=== PATIENT | female | born 1955 | race Caucasian/White ===

== ENCOUNTER → 2016-09-13 | Outpatient (CLI) | payer MEDICARE, OTHER ==
[2016-09-13 09:01] LABS: HEMATOCRIT 31.9 % (36.0-47.0); HGB HCT DIFFERENCE -1.9; MEAN CORPUSCULAR HEMOGLOBIN 23.9 pg (27.0-33.4); MEAN CORPUSCULAR HGB CONC 31.3 g/dL (32.0-36.0); MEAN CORPUSCULAR VOLUME 76 fl (80-97); RED BLOOD COUNT 4.18 10^6/uL (3.72-5.28); RED CELL DISTRIBUTION WIDTH 16.5 % (11.5-14.0); WHITE BLOOD COUNT 12.9 10^3/uL (4.0-10.5)
[2016-09-13 09:22] LABS: ALANINE AMINOTRANSFERASE 24 U/L (9-52); ALBUMIN 3.8 g/dL (3.5-5.0); ALKALINE PHOSPHATASE 45 U/L (38-126); ASPARTATE AMINO TRANSFERASE 19 U/L (14-36); BILIRUBIN,TOTAL 0.5 mg/dL (0.2-1.3); CHOLESTEROL 217.28 mg/dL (0-200); Direct HDL 104 mg/dL (>40); TOTAL PROTEIN 6.7 g/dL (6.3-8.2); TRIGLYCERIDES 57 mg/dL (<150)
[2016-09-13 09:24] LABS: ANION GAP 9 (5-19); BLOOD UREA NITROGEN 15 mg/dL (7-20); CALCIUM 10.3 mg/dL (8.4-10.2); CARBON DIOXIDE 29 mmol/L (22-30); CHLORIDE 103 mmol/L (98-107); CREATININE RESULT 0.72 mg/dL (0.52-1.25); GLUCOSE 96 mg/dL (75-110); POTASSIUM 4.7 mmol/L (3.6-5.0); SODIUM 140.6 mmol/L (137-145)
[2016-09-13 09:33] LABS: DIRECT LDL 100 mg/dL (<100)
[2016-09-13 10:02] LABS: ERYTHROCYTE SEDIMENTATION RATE 34 mm/hr (0-30)
== END ==
LOC: OD 08:14
PROVIDERS: ATTEND Internal Medicine Cardiovascular Disease
DX: R07.9 Chest pain, unspecified (principal); E03.9 Hypothyroidism, unspecified; Z79.899 Other long term (current) drug therapy
CPT/HCPCS: 36415; 80048; 80061; 80076; 84443; 85027; 85652

== ENCOUNTER → 2016-11-13 | Outpatient (CLI) | payer MEDICARE, OTHER ==
[2016-11-13 16:24] LABS: THYROID STIMULATING HORMONE 0.23 uIU/mL (0.47-4.68)
== END ==
LOC: OD 14:38
PROVIDERS: ATTEND Internal Medicine Endocrinology, Diabetes & Metabolism
DX: E03.9 Hypothyroidism, unspecified (principal); E16.2 Hypoglycemia, unspecified
CPT/HCPCS: 36415; 83036; 84439; 84443; 84480

== ENCOUNTER → 2019-04-29 | Outpatient (CLI) | payer MEDICARE, OTHER ==
[2019-04-29 13:22] LABS: ALBUMIN 3.7 g/dL (3.5-5.0); ALKALINE PHOSPHATASE 69 U/L (38-126); ASPARTATE AMINO TRANSFERASE 24 U/L (14-36); BILIRUBIN,DIRECT 0.1 mg/dL (0.0-0.4); BILIRUBIN,TOTAL 0.3 mg/dL (0.2-1.3); CHOLESTEROL 198.07 mg/dL (0-200); TOTAL PROTEIN 6.6 g/dL (6.3-8.2); TRIGLYCERIDES 136 mg/dL (<150)
[2019-04-29 13:33] LABS: DIRECT LDL 79 mg/dL (<100)
== END ==
LOC: LAB 10:00
PROVIDERS: ATTEND Internal Medicine Cardiovascular Disease
DX: E78.00 Pure hypercholesterolemia, unspecified (principal); M79.10 Myalgia, unspecified site; Z79.899 Other long term (current) drug therapy
CPT/HCPCS: 36415; 80061; 80076; 82550

== ENCOUNTER → 2019-08-05 | Outpatient (CLI) | payer MEDICARE, OTHER ==
[2019-08-05 10:10] LABS: ABSOLUTE BASOPHILS # (AUTO) 0.1 10^3/uL (0.0-0.2); ABSOLUTE EOSINOPHILS # (AUTO) 0.2 10^3/uL (0.0-0.6); ABSOLUTE LYMPHOCYTES (AUTO) 1.5 10^3/uL (0.5-4.7); ABSOLUTE MONOCYTES (AUTO) 0.5 10^3/uL (0.1-1.4); ABSOLUTE NEUT (AUTO) 2.8 10^3/uL (1.7-8.2); ABSOLUTE RETICS # 0.062 10^6/uL (0.028-0.122); EOSINOPHILS % (AUTO) 3.5 % (0-6); HEMATOCRIT 39.5 % (36.0-47.0); HEMOGLOBIN 13.2 g/dL (12.0-15.5); LYMPHOCYTES % (AUTO) 29.4 % (13-45); MEAN CORPUSCULAR HEMOGLOBIN 29.6 pg (27.0-33.4); MEAN CORPUSCULAR HGB CONC 33.5 g/dL (32.0-36.0); MEAN CORPUSCULAR VOLUME 88 fl (80-97); MONOCYTES % (AUTO) 10.3 % (3-13); PLATELET COUNT 191 10^3/uL (150-450); RED BLOOD COUNT 4.48 10^6/uL (3.72-5.28); RED CELL DISTRIBUTION WIDTH 20.2 % (11.5-14.0); RETICULOCYTE COUNT (AUTO) 1.37 % (0.66-2.85); SEGMENTED NEUTROPHILS % (AUTO) 55.8 % (42-78); TOTAL CELLS COUNTED % (AUTO) 100 %; WHITE BLOOD COUNT 5.1 10^3/uL (4.0-10.5)
[2019-08-05 12:25] LABS: GLUCOSE 83 mg/dL (75-110)
[2019-08-05 12:26] LABS: ALKALINE PHOSPHATASE 54 U/L (38-126); ANION GAP 6 (5-19); ASPARTATE AMINO TRANSFERASE 26 U/L (14-36); BILIRUBIN,DIRECT 0.3 mg/dL (0.0-0.4); BILIRUBIN,TOTAL 0.4 mg/dL (0.2-1.3); BLOOD UREA NITROGEN 12 mg/dL (7-20); CARBON DIOXIDE 29 mmol/L (22-30); CHLORIDE 105 mmol/L (98-107); POTASSIUM 3.9 mmol/L (3.6-5.0)
[2019-08-05 12:27] LABS: CHOLESTEROL 245.97 mg/dL (0-200); CREATINE KINASE < 20 U/L (30-135); IRON(TIBC) 110.9 ug/dL (37-170); TOTAL PROTEIN 6.8 g/dL (6.3-8.2); TRIGLYCERIDES 83 mg/dL (<150); VLDL CHOLESTEROL 16.6 mg/dL (10-31)
[2019-08-05 12:28] LABS: DIRECT LDL 127 mg/dL (<100)
[2019-08-05 13:16] LABS: ASPARTATE AMINO TRANSFERASE 26 U/L (14-36)
[2019-08-05 13:17] LABS: ALKALINE PHOSPHATASE 54 U/L (38-126); BILIRUBIN,DIRECT 0.3 mg/dL (0.0-0.4); BILIRUBIN,TOTAL 0.4 mg/dL (0.2-1.3); CHOLESTEROL 245.97 mg/dL (0-200); DIRECT LDL 127 mg/dL (<100); TOTAL PROTEIN 6.8 g/dL (6.3-8.2); TRIGLYCERIDES 83 mg/dL (<150); VLDL CHOLESTEROL 16.6 mg/dL (10-31)
[2019-08-05 13:58] LABS: HEMATOCRIT 39.5 % (36.0-47.0); HEMOGLOBIN 13.2 g/dL (12.0-15.5); MEAN CORPUSCULAR HEMOGLOBIN 29.6 pg (27.0-33.4); MEAN CORPUSCULAR HGB CONC 33.5 g/dL (32.0-36.0); MEAN CORPUSCULAR VOLUME 88 fl (80-97); PLATELET COUNT 191 10^3/uL (150-450); RED BLOOD COUNT 4.48 10^6/uL (3.72-5.28); RED CELL DISTRIBUTION WIDTH 20.2 % (11.5-14.0); WHITE BLOOD COUNT 5.1 10^3/uL (4.0-10.5)
[2019-08-05 20:31] LABS: TRANSFERRIN 232.51 mg/dL (206.00-381.00)
[2019-08-06 12:37] LABS: CREATININE URINE 147.7 mg/dL (Not Estab.)
== END ==
LOC: LAB 09:20
PROVIDERS: ATTEND Family Medicine
DX: E78.00 Pure hypercholesterolemia, unspecified (principal); E11.9 Type 2 diabetes mellitus without complications; E78.5 Hyperlipidemia, unspecified; E03.9 Hypothyroidism, unspecified; E55.9 Vitamin D deficiency, unspecified; D50.9 Iron deficiency anemia, unspecified; Z79.899 Other long term (current) drug therapy
CPT/HCPCS: 36415; 80053; 80061; 82043; 82306; 82550; 82570; 82607; 82728; 82746; 82977; 83036; 83525; 83540; 83550; 84443; 84466; 85025; 85045; 87070

== ENCOUNTER → 2020-06-20 | Outpatient (CLI) | payer MEDICARE, OTHER ==
[2020-06-20 12:47] LABS: ABSOLUTE RETICS # 0.086 10^6/uL (0.028-0.122); HEMATOCRIT 39.4 % (36.0-47.0); HEMOGLOBIN 13.1 g/dL (12.0-15.5); MEAN CORPUSCULAR HEMOGLOBIN 30.9 pg (27.0-33.4); MEAN CORPUSCULAR HGB CONC 33.2 g/dL (32.0-36.0); MEAN CORPUSCULAR VOLUME 93 fl (80-97); PLATELET COUNT 230 10^3/uL (150-450); RED BLOOD COUNT 4.24 10^6/uL (3.72-5.28); RED CELL DISTRIBUTION WIDTH 15.1 % (11.5-14.0); RETICULOCYTE COUNT (AUTO) 2.04 % (0.66-2.85); WHITE BLOOD COUNT 6.2 10^3/uL (4.0-10.5)
[2020-06-20 13:04] LABS: ALKALINE PHOSPHATASE 78 U/L (38-126); ANION GAP 8 (5-19); ASPARTATE AMINO TRANSFERASE 31 U/L (14-36); BILIRUBIN,DIRECT 0.1 mg/dL (0.0-0.4); BILIRUBIN,TOTAL 0.5 mg/dL (0.2-1.3); BLOOD UREA NITROGEN 15 mg/dL (7-20); CARBON DIOXIDE 25 mmol/L (22-30); CHLORIDE 107 mmol/L (98-107); CHOLESTEROL 213.92 mg/dL (0-200); GLUCOSE 83 mg/dL (75-110); POTASSIUM 4.5 mmol/L (3.6-5.0); TOTAL PROTEIN 6.6 g/dL (6.3-8.2); TRIGLYCERIDES 145 mg/dL (<150)
[2020-06-20 13:15] LABS: DIRECT LDL 88 mg/dL (<100)
== END ==
LOC: OD 10:33
PROVIDERS: ATTEND Internal Medicine Cardiovascular Disease
DX: E78.00 Pure hypercholesterolemia, unspecified (principal); D64.9 Anemia, unspecified; R00.2 Palpitations; Z79.899 Other long term (current) drug therapy
CPT/HCPCS: 36415; 80048; 80061; 80076; 84443; 85027; 85045